=== PATIENT | male | born 1970 | race Caucasian/White ===

== ENCOUNTER 2019-08-03 03:38 | Emergency (ER) | payer BC, SELFPAY ==
[2019-08-03 03:38] VITALS: BP 152/93; PULSE 86; RESP 17; TEMP 36.7; O2SAT 98; BMI 31.8
--- NOTE | 2019-08-03 03:39 | ED.RN ---
NO OLD EKGS IN MUSE
--- NOTE | 2019-08-03 03:46 | EKG12_ITS ---
Test Reason : CP Blood Pressure : / mmHG Vent. Rate : 083 BPM Atrial Rate : 083 BPM P-R Int : 150 ms QRS Dur : 088 ms QT Int : 352 ms P-R-T Axes : 002 073 005 degrees QTc Int : 413 ms Normal sinus rhythm Normal ECG Confirmed by SMITA WU, CHEY ([id number]), video editor DARIN GARCIA ([id number]) on 08/04/2019 1:03:47 PM Referred By: ADRIANE Confirmed By:CHEY ORDOÑEZ MD
--- NOTE | 2019-08-03 03:51 | RAD_ITS ---
STUDY: X-RAY CHEST REASON FOR EXAM: Male, 49 years old. Left-sided chest pain TECHNIQUE: Single AP portable view of the chest. COMPARISON: None. FINDINGS: There are superimposed monitor leads. There is no demonstrated pneumothorax. Mild bronchial wall thickening in the right base. No consolidation left lung. There is no demonstrated pleural abnormality. Normal size heart. Normal mediastinum and troy. Normal visualized pulmonary arteries. Normal visualized aortic arch and descending thoracic aorta. Normal visualized thoracic spine. Normal visualized ribs, clavicles, and shoulders. There is no demonstrated abnormality of the visualized soft tissue structures of the upper abdomen. RAD/Chest 1 View (Portable) IMPRESSION: Possible mild bronchitis/inflammation. No pulmonary edema, congestive heart failure or confluent left pneumonia. Electronically Signed: Liyah Bull MD at 4:14 EST , Service support ,
[2019-08-03 03:54] LABS: Absolute Lymphocyte Count 2.75 X10^3/uL (0.83-4.51); Basophil# 0.04 X10^3/uL; Basophil% 0.4 % (0-1); Eosinophil# 0.28 X10^3/uL; Eosinophils% 3.1 % (0-5); Hematocrit 47.1 % (40-54); Hemoglobin 15.8 g/dL (13.0-16.5); Lymphocyte # 2.75 X10^3/ul (4.0); Lymphocyte % 30.7 % (19-41); Mean Corp Hgb Conc 33.5 g/dL (32-36); Mean Corpuscular Volume 89.5 fL (80-94); Mean Platelet Vol. 10.6 fl (6.2-12.0); Monocyte# 0.83 X10^3/uL; Monocyte% 9.3 % (0-10); NRBC Flagged by Analyzer 0 % (0-5); Neutrophil # 5.04 X10^3/uL (2.7-7.7); Neutrophil % 56.3 % (47-70); Platelet Count 281 K/mm3 (150-450); RBC Distribution Width CV 12.3 % (11.6-14.6); RBC Distribution Width SD 40.5 fl (35.1-43.9); Red Blood Count 5.26 M/mm3 (4.6-6.2)
[2019-08-03 04:11] LABS: Anion Gap 5 (5-15); BUN 17 mg/dL (7-18); BUN/Creat Ratio 16.8 RATIO (10-20); Calcium,Total 9.1 mg/dL (8.5-10.1); Chloride 103 mmol/L (98-107); Creatinine, Serum 1.01 mg/dL (0.70-1.30); EST Glomerular Filtration Rate 83 mL/min (>60); Est Glom Filt Rate - Afr Amer 101 mL/min (>60); Estimated Creatinine Clearance 94.23 ml/min; Glucose 82 mg/dL (74-106); Sodium Level 138 mmol/L (136-145)
[2019-08-03] MEDS: Aspirin 81 MG TAB.CHEW 324 MG PO (04:27)
[2019-08-03 04:28] VITALS: BP 134/91; PULSE 88; RESP 18; O2SAT 94
--- NOTE | 2019-08-03 04:28 | ED.VISSUMM ---
- ER Visit Summary Date of Service: 08/03/19 Chief Complaint: Chest pain History of Present Illness: The patient is a 49 M with left-sided chest pain that started about an hour prior to arrival while at work. It feels like a stabbing chest pain and it is intermittent, every few seconds. No associated symptoms like shortness of breath, sweats, nausea, lightheadedness. No history of heart disease, but he does report a history of hypertension. He denies smoking. Denies any history of blood clots or aortic disease. Physical Examination: Afebrile and vital signs unremarkable. Alert and oriented. No acute distress. Occasional twinges of left-sided chest pain where he clutches his left chest. He is neurovascular intact in all extremities. No edema. Heart regular. Lungs clear. Skin normal. Test Results: EKG showed sinus rhythm at a rate of 83 with no signs of ischemia or infarction. CBC, BMP, troponin normal. Chest x-ray showed nothing acute. Emergency Department Course and Treatment: Patient is PERC negative. Heart score is 2. He declined repeat troponin. He does not need inpatient care, but I did advise him he does have some risk factors, and he should follow-up with a PCP. Nothing to suggest aortic disease. We will treat the patient for what I suspect is myofascial pain. Anti-inflammatories. Return for any new or worsening issues. Treatment Plan: As above Disposition: Discharge Impression: 1. Atypical chest pain This note was generated with [employer] dictation software. It may contain incorrect words, spelling, and punctuation that were not noted in review of the chart prior to signing ED Disposition - Plan for ED Patient: Referrals: Care Physician,No Primary [Primary Care Provider] -
--- NOTE | 2019-08-03 04:31 | ED.DEP ---
ED Disposition - Plan for ED Patient: Instructions: CHEST PAIN, Uncertain Cause Prescriptions: Ibuprofen [Motrin] 800 mg PO TID PRN PRN #20 tab PRN Reason: Pain Or Fever Prescription Printed Referrals: Williams Dean DO [NON CLINICAL AFFILIATE] -
== END 2019-08-03 04:38 | disposition home or self-care (01) ==
LOC: ED 03:54
PROVIDERS: Emergency Provider Emergency Medicine
DX: R07.89 Other chest pain (principal); I10 Essential (primary) hypertension; F41.9 Anxiety disorder, unspecified; Z79.899 Other long term (current) drug therapy
CPT/HCPCS: 71045; 80048; 84484; 85025; 93005; 99285; A4216